=== PATIENT | male | born 1990 | race American Indian/Alaskan Native ===

== ENCOUNTER 2021-02-20 18:42 | Emergency (ER) | payer OTHER ==
--- NOTE | 2021-02-20 19:37 | EDM.PDOC ---
ED HPI GENERAL MEDICAL PROBLEM - General Chief Complaint: Upper Extremity Injury/Pain Stated Complaint: L HAND INJURY Time Seen by Provider: 02/20/21 19:00 Source of Information: Reports: Patient History Limitations: Reports: No Limitations - History of Present Illness INITIAL COMMENTS - FREE TEXT/NARRATIVE: 30-year-old male presents to the emergency department with complaints of a left hand injury. Patient states that he punched a wall last evening and the upper extremity has since gotten edematous and significantly more painful. Patient states he feels a grinding sensation in his hand with palpation or with attempting to make a fist. Minor amount of pain noted on the fourth and fifth metacarpal area. Left Hand Pain Score (Numeric/FACES): 7 - Related Data Allergies Allergy/AdvReac Type Severity Reaction Status Date / Time No Known Allergies Allergy Verified 02/20/21 18:56 Home Meds: Home Meds . [No Known Home Meds] 02/20/21 [History] Past Medical History HEENT History: Reports: Impaired Vision Musculoskeletal History: Reports: Fracture Other Musculoskeletal History: right hand (01/2021) - Infectious Disease History Infectious Disease History: Reports: Chicken Pox Social & Family History - Family History Family Medical History: No Pertinent Family History - Tobacco Use Tobacco Use Status *Q: Current Every Day Tobacco User Years of Tobacco use: 15 Packs/Tins Daily: 1 - Caffeine Use Caffeine Use: Reports: Soda - Recreational Drug Use Recreational Drug Use: Yes Drug Use in Last 12 Months: Yes Recreational Drug Type: Reports: Marijuana/Hashish Review of Systems - Review of Systems Review Of Systems: Comprehensive ROS is negative, except as noted in HPI. ED EXAM, GENERAL - Physical Exam Exam: See Below Exam Limited By: No Limitations General Appearance: Alert, WD/WN, No Apparent Distress Ears: Normal External Exam, Hearing Grossly Normal Nose: Normal Inspection Throat/Mouth: Normal Inspection, Normal Lips, Normal Voice, No Airway Compromise Head: Atraumatic, Normocephalic Neck: Normal Inspection Respiratory/Chest: No Respiratory Distress, No Accessory Muscle Use Cardiovascular: Normal Peripheral Pulses, Regular Rate, Rhythm Peripheral Pulses: 2+: Radial (L), Radial (R) GI/Abdominal: No Distention (Male) Exam: Deferred Rectal (Males) Exam: Deferred Back Exam: Normal Inspection Extremities: Normal Capillary Refill. No: Normal Inspection (Swelling noted to left dorsal aspect of the hand), Normal Range of Motion (Unable to make a fist with left hand), Non-Tender (Dorsal aspect of the left hand tender specifically in the fourth and fifth metacarpal area) Neurological: Alert, Oriented, Normal Cognition Psychiatric: Normal Affect, Normal Mood Skin Exam: Warm, Dry, Intact, Normal Color, No Rash Lymphatic: No Adenopathy ED TRAUMA EXTREMITY PROCEDURES - Splinting Left Upper Extremity Splint Site: left upper extremity Pre-Procedure NV Status: Normal Post-Procedure NV Status: Normal Splint Material: Fiberglass Splint Design: Other (ulner gutter) Applied & Form Fitted By: Provider, Nurse Provider Post-Splint Application NV Check: NV Status Normal, Good Position Complications: No Course - Vital Signs Text/Narrative:: Patient presents to the ER with complaints of a left hand injury that he sustained last night after punching a wall. Left hand is very swollen and painful to palpation. Patient is unable to make a fist. States that majority of his pain is located in the fourth and fifth metacarpal area. He states that when he palpates the area he can feel a grinding noted. CMS is still positive. I have ordered it x-ray of the left hand. Last Recorded V/S: Last Vital Signs Temp 97.4 F 02/20/21 18:52 Pulse 113 H 02/20/21 18:52 Resp 20 02/20/21 18:52 BP 154/92 H 02/20/21 18:52 Pulse Ox 99 02/20/21 18:52 - Orders/Labs/Meds Orders: Active Orders 24 hr Category Date Time Status Hand Comp Min 3V Lt [CR] Stat Exams 02/20/21 18:54 Taken - Re-Assessments/Exams Free Text/Narrative Re-Assessment/Exam: 02/20/21 20:17 Xray was reviewed by myself and Dr. Wong. Displaced fracture is noted to the shaft of the 4th metacarpal. An ulner gutter splint will be placed per Dr. Wong's recommendations and the patient will be referred to a hand surgeon as he will likely need a pin placed. Departure - Departure Time of Disposition: 19:31 Disposition: Home, Self-Care 01 Condition: Good Clinical Impression: Fracture of metacarpal bone Qualifiers: Encounter type: initial encounter Metacarpal bone: fourth Fracture type: closed Metacarpal location: shaft Fracture alignment: displaced Laterality: left Qualified Code(s): S62.325A - Displaced fracture of shaft of fourth metacarpal bone, left hand, initial encounter for closed fracture - Discharge Information Instructions: Cast or Splint Care, Adult, [id number], Metacarpal Fracture, [id number] Referrals: PCP,None [Primary Care Provider] - Forms: ED Department Discharge Additional Instructions: You were seen in the emergency department today with complaints of pain to your left hand. You stated that you punched a wall last evening. X-rays were completed and you have a fracture noted to the fourth metacarpal on your left hand. A splint was placed. This needs to remain on and dry until you follow-up with a hand surgeon. You can call [facility] at [phone]. Your xrays have been sent to [place]. You will take ibuprofen 800 mg every 6-8 hours as needed for discomfort. Sepsis Event Note (ED) - Evaluation Sepsis Screening Result: No Definite Risk - Focused Exam Vital Signs: Vital Signs Temp Pulse Resp BP Pulse Ox 02/20/21 18:52 97.4 F 113 H 20 154/92 H 99 - My Orders Last 24 Hours: My Active Orders 02/20/21 18:54 Hand Comp Min 3V Lt [CR] Stat - Assessment/Plan Last 24 Hours: My Active Orders 02/20/21 18:54 Hand Comp Min 3V Lt [CR] Stat
--- NOTE | 2021-02-21 09:14 | CR ---
Left hand: 4 views of the left hand were obtained. Comparison: No previous study. Mildly displaced fracture is noted within the proximal shaft of the fourth metacarpal. Soft tissue swelling is noted. No additional fracture or other abnormality is appreciated. Impression: 1. Mildly displaced fracture within the fourth metacarpal. 2. Soft tissue swelling. Diagnostic code #3
== END 2021-02-20 19:45 | disposition home or self-care (01) ==
LOC: JD.ED 18:42
DX: S62.325A Displaced fracture of shaft of fourth metacarpal bone, left hand, initial encounter for closed fracture (principal); Z72.0 Tobacco use; W22.8XXA Striking against or struck by other objects, initial encounter
CPT/HCPCS: 29125; 73130-26-LT; 73130-LT; 99283; 99283-25